=== PATIENT | female | born 1935 | race African-American/Black ===

== ENCOUNTER → 2019-02-24 | Day surgery (SDC) | payer MEDICARE, MEDICAID ==
[~2019-02-24] MED LIST: ACET-2178 PO; AMLO2.5T45 PO; APIX5TAB PO; ASCO500C6 PO; ATOR10TA PO; BISA10SU66 RC; BRIM10DR2 BOTHEYE; BROM3DRO BOTHEYE; CALC-816 PO; CHOL500010 PO; CITA20TA75 PO; COMBIGAN LEFTEYE; DICLOFENAC BOTHEYE; DOCU-150 PO; FERR-63 PO; FURO20TA4 PO; GABA-531 PO; HYDR-4001 PO; IMODIUM PO; INSU100V28; INVOKANA PO; LEVO25TA7 PO; LIDOCAINE HCL/EPINEPHRINE 1%-EPI 1:100,000 20 ML VIAL ONE; LOSA50TA20 PO; METF-414 PO; MOM PO; MULT-1146 PO; OCD MT; OMEP20TA2 PO; PIOG30TA10 PO; RISO02 PO; ROBITUSSIN DM PO; SIMBRINZA RIGHTEYE; SODIUM BICARBONATE 4% (2.4MEQ) 5ML VIAL IV ONE; SYSOS EACHEYE; TRAM50TA3 PO; TRAV2.5D LEFTEYE; [UNRECOGNIZED DRUG - REMARK] PO
== END | disposition home or self-care (01) ==
LOC: RAD 10:16
PROVIDERS: ATTEND Surgery
DX: C50.911 Malignant neoplasm of unspecified site of right female breast (principal)
CPT/HCPCS: 19083; 88305; A4648; J3490

== ENCOUNTER 2019-03-06 07:19 | Inpatient (IN) | payer MEDICARE, MEDICAID ==
[~2019-03-06] VITALS: Ht 170.2 cm; Wt 88.5 kg
[~2019-03-06 07:19] MED LIST changes: -COMBIGAN LEFTEYE; -DICLOFENAC BOTHEYE; -HYDR-4001 PO; -INSU100V28; -INVOKANA PO; -LIDOCAINE HCL/EPINEPHRINE 1%-EPI 1:100,000 20 ML VIAL ONE; -OCD MT; -SIMBRINZA RIGHTEYE; -SODIUM BICARBONATE 4% (2.4MEQ) 5ML VIAL IV ONE
[2019-03-06] MEDS ORDERED: SODIUM BICARBONATE 4% (2.4MEQ) 5ML VIAL IV ONE (08:15)
[2019-03-06] MEDS ORDERED: LIDOCAINE HCL 1% 20ML VIAL (Pyxis) INJ ONE (08:15)
[2019-03-06] MEDS ORDERED: GENTAMICIN SULF 40MG/ML 2ML VIAL ONE (08:32)
[2019-03-06] MEDS ORDERED: NORMAL SALINE 0.9% 10 ML SYR ONE (08:32)
[2019-03-06] MEDS ORDERED: SKIN ADHESIVE 0.7 GM EA TOP ONE (08:32)
[2019-03-06] MEDS ORDERED: BACITRACIN 50,000 UNITS/VIAL ONE (08:32)
[2019-03-06] MEDS ORDERED: METHYLENE BLUE 50 MG/10 ML AMP IV ONE (09:18)
[2019-03-06] MEDS ORDERED: PHENYLEPHRINE HCL 10 MG/ML 1ML (IV VIAL) IV ONE (10:10)
[2019-03-06] MEDS ORDERED: GLYCOPYRROLATE 0.2 MG/ML 2ML VIAL ONE (10:10)
[2019-03-06] MEDS ORDERED: SODIUM CHLORIDE 0.9% 10ML VIAL ONE (10:10)
[2019-03-06] MEDS ORDERED: PROPOFOL 200MG/20ML VIAL IV ONE (10:10)
[2019-03-06] MEDS ORDERED: NEOSTIGMINE METHYLSULFATE 1MG/ML 10 ML VIAL ONE (10:10)
[2019-03-06] MEDS ORDERED: FENTANYL CITRATE/PF 50MCG/ML 2ML VIAL ONE (10:10)
[2019-03-06] MEDS ORDERED: METOCLOPRAMIDE HCL 10MG/2ML VIAL ONE (10:10)
[2019-03-06] MEDS ORDERED: SUCCINYLCHOLINE CHLORIDE 200MG/10ML IV ONE (10:10)
[2019-03-06] MEDS ORDERED: ONDANSETRON HCL 4MG/2ML INJ ONE (10:10)
[2019-03-06] MEDS ORDERED: MIDAZOLAM HCL 2 MG/2 ML VIAL ONE (10:10)
[2019-03-06] MEDS ORDERED: LIDOCAINE HCL/PF 1% 10 MG/ML 5ML VIAL ONE (10:10)
[2019-03-06] MEDS ORDERED: ROCURONIUM BROMIDE 10MG/ML VIAL 5ML IV ONE (10:10)
[2019-03-06] MEDS ORDERED: CEFAZOLIN SODIUM 1000MG/VIAL ONE (10:10)
[2019-03-06] MEDS ORDERED: EPHEDRINE SULFATE 50MG/ML VIAL ONE (10:10)
[2019-03-06] MEDS ORDERED: SODIUM CHLORIDE 0.9% 1,000 ML IV ONE (12:44)
[2019-03-06] MEDS ORDERED: ONDANSETRON HCL 4MG/2ML INJ IV PRN ×2 (12:45)
[2019-03-06] MEDS ORDERED: HYDROCODONE/ACETAMINOPHEN 5/325MG TABLET PO PRN ×2 (12:45)
[2019-03-06] MEDS: HYDROMORPHONE HCL/PF 2MG/ML CPJ IV PRN ×2 (13:47→14:02)
[2019-03-06 15:39] VITALS: BP 181/74
[2019-03-06 16:00] VITALS: BP 181/74
[2019-03-06] MEDS ORDERED: CLONIDINE 0.1MG TABLET PO PRN (18:00)
[2019-03-06] MEDS: DEXT 5%/0.45% NACL KCL 20MEQ/L 1,000 ML IV SCH (18:24)
[2019-03-06] MEDS: MORPHINE SULFATE 4 MG/ML CPJ (NOT FOR IM USE) IV PRN (22:44)
[2019-03-07] VITALS: BP 146/71
[2019-03-07] MEDS: DEXT 5%/0.45% NACL KCL 20MEQ/L 1,000 ML IV SCH ×2 (02:30→14:00)
[2019-03-07] MEDS: MORPHINE SULFATE 4 MG/ML CPJ (NOT FOR IM USE) IV PRN (02:35)
[2019-03-07 04:00] VITALS: BP 146/72
[2019-03-07 08:00] VITALS: BP 149/61
[2019-03-07] MEDS ORDERED: HYDR-4001 PO (09:17)
[2019-03-07 11:07] VITALS: BP 149/61
== END 2019-03-07 14:34 | DRG 581 ==
LOC: OR 07:19 → 6EST 07:20
PROVIDERS: ADMIT Surgery; ATTEND Surgery
PROC: 0HBT0ZZ Excision of Right Breast, Open Approach (ICD-10-PCS; principal; 2019-03-06)
PROC: 07B50ZZ Excision of Right Axillary Lymphatic, Open Approach (ICD-10-PCS; 2019-03-06)
PROC: BH40ZZZ Ultrasonography of Right Breast (ICD-10-PCS; 2019-03-06)
DX: C50.911 Malignant neoplasm of unspecified site of right female breast (principal); E11.65 Type 2 diabetes mellitus with hyperglycemia; E11.621 Type 2 diabetes mellitus with foot ulcer; L97.509 Non-pressure chronic ulcer of other part of unspecified foot with unspecified severity
CPT/HCPCS: 19083; 78195; 82962; 88307; 88309; 88331; J0330; J0690; J1170; J1580; J2250; J2270; J2370; J2405; J2704; J2710; J2765; J3010; J3490; Q9968

== ENCOUNTER 2019-04-11 19:54 | Emergency (ER) | payer MEDICARE, MEDICAID ==
[~2019-04-11] VITALS: Ht 162.6 cm; Wt 86.0 kg
[~2019-04-11 19:54] MED LIST changes: +HYDR-4001 PO
[2019-04-11] MEDS ORDERED: ASPIRIN 81MG TABLET PO ONE (20:45)
[2019-04-11 21:20] LABS: BASOPHILS % 0.9 % (0.0-2.0); EOSINOPHILS % 2.3 % (0.0-5.0); HEMATOCRIT. 29.3 % (36.0-48.0); HEMOGLOBIN. 9.4 g/dL (12.0-16.0); LYMPHOCYTES % 21.1 % (20.0-50.0); MEAN CORPUSCULAR HEMOGLOBIN 26.1 pg (28.0-32.0); MEAN CORPUSCULAR VOLUME 81.5 fL (81.0-99.0); MONOCYTES % 7.9 % (2.0-8.0); NEUTROPHILS % 67.8 % (40.0-76.0); PLATELET 261 x1000/uL (130-400); RED BLOOD CELL COUNT 3.59 mill/uL (4.2-5.4)
[2019-04-11 21:26] LABS: CHLORIDE 104 mEq/L (98-107)
[2019-04-12 00:09] VITALS: BP 122/52
== END 2019-04-12 00:10 | disposition home or self-care (01) ==
LOC: ER 20:04
DX: R07.89 Other chest pain (principal); E78.5 Hyperlipidemia, unspecified; E11.9 Type 2 diabetes mellitus without complications; E78.00 Pure hypercholesterolemia, unspecified; I10 Essential (primary) hypertension; Z79.899 Other long term (current) drug therapy
CPT/HCPCS: 36415; 71045; 83880; 84484; 93005; 99284

== ENCOUNTER 2019-08-02 04:37 | Inpatient (IN) | payer MEDICARE, MEDICAID ==
[~2019-08-02] VITALS: Ht 165.1 cm; Wt 95.1 kg
[~2019-08-02 04:37] MED LIST changes: +CALC-38 PO; -CALC-816 PO; -LOSA50TA20 PO; +LOSA50TA41 PO
[2019-08-02 05:46] LABS: BASOPHILS % 1.2 % (0.0-2.0); EOSINOPHILS % 2.2 % (0.0-5.0); HEMATOCRIT. 30.9 % (36.0-48.0); HEMOGLOBIN. 10.1 g/dL (12.0-16.0); LYMPHOCYTES % 23.5 % (20.0-50.0); MEAN CORPUSCULAR HEMOGLOBIN 26.5 pg (28.0-32.0); MEAN CORPUSCULAR VOLUME 81.5 fL (81.0-99.0); MEAN PLATELET VOLUME 8.2 fl (7.4-10.4); MONOCYTES % 8.2 % (2.0-8.0); NEUTROPHILS % 64.9 % (40.0-76.0); PLATELET 272 x1000/uL (130-400)
[2019-08-02 05:58] LABS: CHLORIDE 104 mEq/L (98-107)
[2019-08-02] MEDS ORDERED: ASPIRIN 81MG TABLET PO ONE (07:00)
[2019-08-02 08:15] LABS: CLARITY URINE TURBID (CLEAR); COLOR URINE YELLOW (YELLOW); KETONES URINE NEGATIVE (NEGATIVE); LEUKOCYTE ESTERASE URINE 3+ (NEGATIVE); NITRITE URINE NEGATIVE (NEGATIVE); OCCULT BLOOD URINE TRACE (NEGATIVE); PH URINE 7.5 (4.5-8.0); PROTEIN URINE NEGATIVE (NEGATIVE); SPECIFIC GRAVITY URINE 1.006 (1.005-1.030)
[2019-08-02] MEDS ORDERED: LOSARTAN POTASSIUM 50 MG TABLET PO NR (16:00)
[2019-08-02] MEDS ORDERED: GABAPENTIN 300MG CAPSULE PO SCH (21:00)
[2019-08-02] MEDS: HYDROCODONE/ACETAMINOPHEN 5/325MG TABLET PO PRN (21:10)
[2019-08-02 22:00] VITALS: BP 133/57
[2019-08-03] MEDS: HYDROCODONE/ACETAMINOPHEN 5/325MG TABLET PO PRN ×2 (01:07→04:55)
[2019-08-03 04:00] VITALS: BP 141/55
[2019-08-03] MEDS: OMEPRAZOLE 20MG CAPSULE EXTENDED RELEASE PO SCH (05:50)
[2019-08-03] MEDS: LEVOTHYROXINE SODIUM 25MCG TABLET PO SCH (05:50)
[2019-08-03] MEDS ORDERED: GUAIFENESIN/CODEINE 200-20MG/10ML UDC PO PRN (06:45)
[2019-08-03] MEDS ORDERED: HYDROCODONE/ACETAMINOPHEN 10/325MG TABLET PO PRN (06:45)
[2019-08-03] MEDS ORDERED: DEXTROSE 50% WATER 50ML SYRINGE IV PRN (07:00)
[2019-08-03] MEDS: BLOOD SUGAR DIAGNOSTIC STRIP TEST SCH ×4 (07:00→21:55)
[2019-08-03] MEDS: INSULIN LISPRO 100 UNITS/ML SUBCUT SCH ×4 (07:15→21:00)
[2019-08-03 08:00] VITALS: BP 136/55
[2019-08-03] MEDS: AMLODIPINE 2.5MG TABLET PO SCH (09:06)
[2019-08-03] MEDS: METFORMIN HCL 500MG TABLET PO SCH ×2 (09:06→18:31)
[2019-08-03] MEDS: GABAPENTIN 300MG CAPSULE PO SCH ×2 (09:07→15:04)
[2019-08-03] MEDS: APIXABAN 5 MG TABLET PO SCH ×2 (09:07→18:31)
[2019-08-03] MEDS: CITALOPRAM HYDROBROMIDE 10MG TABLET PO SCH (09:07)
[2019-08-03] MEDS: DOCUSATE SODIUM 100MG CAPSULE PO SCH (09:07)
[2019-08-03 12:00] VITALS: BP 117/54
[2019-08-03] MEDS ORDERED: IPRATROPIUM/ALBUTEROL 0.5-3(2.5)MG/3ML NEB HHN PRN (14:00)
[2019-08-03] MEDS ORDERED: BENZONATATE 100MG CAPSULE PO PRN (14:00)
[2019-08-03 16:31] VITALS: BP_SYST 122; BP_SYST 147; BP_DIAS 60; BP_DIAS 68
[2019-08-03 19:10] LABS: BASOPHILS % 1.2 % (0.0-2.0); EOSINOPHILS % 1.8 % (0.0-5.0); HEMATOCRIT. 29.6 % (36.0-48.0); HEMOGLOBIN. 9.5 g/dL (12.0-16.0); LYMPHOCYTES % 23.5 % (20.0-50.0); MEAN CORPUSCULAR HEMOGLOBIN 26.5 pg (28.0-32.0); MEAN CORPUSCULAR VOLUME 82.4 fL (81.0-99.0); MEAN PLATELET VOLUME 8.7 fl (7.4-10.4); MONOCYTES % 8.6 % (2.0-8.0); NEUTROPHILS % 64.9 % (40.0-76.0); PLATELET 291 x1000/uL (130-400); RED BLOOD CELL COUNT 3.59 mill/uL (4.2-5.4)
[2019-08-03 19:12] LABS: CHLORIDE 101 mEq/L (98-107)
[2019-08-03 20:00] VITALS: BP 127/67
[2019-08-03] MEDS: IPRATROPIUM/ALBUTEROL 0.5-3(2.5)MG/3ML NEB HHN SCH (20:43)
[2019-08-03] MEDS: ATORVASTATIN CALCIUM 10MG TABLET PO SCH (21:00)
[2019-08-04] VITALS: BP 130/53
[2019-08-04] MEDS: IPRATROPIUM/ALBUTEROL 0.5-3(2.5)MG/3ML NEB HHN SCH ×4 (01:47→20:34)
[2019-08-04 04:00] VITALS: BP 144/58
[2019-08-04] MEDS: LEVOTHYROXINE SODIUM 25MCG TABLET PO SCH (05:52)
[2019-08-04] MEDS: OMEPRAZOLE 20MG CAPSULE EXTENDED RELEASE PO SCH (05:52)
[2019-08-04] MEDS: BLOOD SUGAR DIAGNOSTIC STRIP TEST SCH ×4 (06:47→21:55)
[2019-08-04] MEDS: INSULIN LISPRO 100 UNITS/ML SUBCUT SCH ×4 (06:56→22:08)
[2019-08-04 08:00] VITALS: BP 140/93
[2019-08-04] MEDS: METFORMIN HCL 500MG TABLET PO SCH ×2 (08:36→18:27)
[2019-08-04] MEDS: CITALOPRAM HYDROBROMIDE 10MG TABLET PO SCH (08:36)
[2019-08-04] MEDS: APIXABAN 5 MG TABLET PO SCH ×2 (08:36→18:27)
[2019-08-04] MEDS: DOCUSATE SODIUM 100MG CAPSULE PO SCH (08:36)
[2019-08-04] MEDS: AMLODIPINE 2.5MG TABLET PO SCH ×2 (08:47→18:27)
[2019-08-04] MEDS: GABAPENTIN 300MG CAPSULE PO SCH ×3 (09:00→18:27)
[2019-08-04 12:00] VITALS: BP 150/64
[2019-08-04 16:00] VITALS: BP 194/70
[2019-08-04] MEDS: NITROFURANTOIN MACROCRYSTAL 50MG CAPSULE PO SCH (18:00)
[2019-08-04] MEDS: ATORVASTATIN CALCIUM 10MG TABLET PO SCH (22:00)
[2019-08-04 22:43] VITALS: BP 144/69
[2019-08-05] VITALS: BP 134/79
[2019-08-05] MEDS: NITROFURANTOIN MACROCRYSTAL 50MG CAPSULE PO SCH ×3 (00:28→12:52)
[2019-08-05] MEDS: AMLODIPINE 2.5MG TABLET PO SCH ×2 (01:54→14:00)
[2019-08-05] MEDS: IPRATROPIUM/ALBUTEROL 0.5-3(2.5)MG/3ML NEB HHN SCH ×3 (02:00→12:00)
[2019-08-05 04:00] VITALS: BP 143/61
[2019-08-05] MEDS: BLOOD SUGAR DIAGNOSTIC STRIP TEST SCH ×4 (06:42→16:45)
[2019-08-05] MEDS: METFORMIN HCL 500MG TABLET PO SCH (06:43)
[2019-08-05] MEDS: OMEPRAZOLE 20MG CAPSULE EXTENDED RELEASE PO SCH (06:43)
[2019-08-05] MEDS: LEVOTHYROXINE SODIUM 25MCG TABLET PO SCH (06:43)
[2019-08-05] MEDS: INSULIN LISPRO 100 UNITS/ML SUBCUT SCH ×3 (06:50→17:15)
[2019-08-05 08:00] VITALS: BP 149/73
[2019-08-05] MEDS: DOCUSATE SODIUM 100MG CAPSULE PO SCH (09:00)
[2019-08-05] MEDS: GABAPENTIN 300MG CAPSULE PO SCH ×2 (10:06→12:51)
[2019-08-05] MEDS: CITALOPRAM HYDROBROMIDE 10MG TABLET PO SCH (10:07)
[2019-08-05] MEDS: APIXABAN 5 MG TABLET PO SCH (10:08)
[2019-08-05 12:00] VITALS: BP 150/73
[2019-08-05 15:19] VITALS: BP 150/73
[2019-08-05 16:00] VITALS: BP 137/80
[2019-08-06] MEDS ORDERED: FAMOTIDINE 20MG TABLET PO SCH (09:00)
== END 2019-08-05 17:57 | DRG 189 ==
LOC: ER 04:37 → EDBEDREQTM 06:53 → 5WST 07:50 → EDBEDREQ 08:05 → ENRESERV 20:55
PROVIDERS: ADMIT Specialist; ATTEND Specialist
DX: J96.00 Acute respiratory failure, unspecified whether with hypoxia or hypercapnia (principal); I48.92 Unspecified atrial flutter; N39.0 Urinary tract infection, site not specified; I48.0 Paroxysmal atrial fibrillation; M72.0 Palmar fascial fibromatosis [Dupuytren]; D64.9 Anemia, unspecified; M19.90 Unspecified osteoarthritis, unspecified site; I10 Essential (primary) hypertension; H40.9 Unspecified glaucoma; E78.5 Hyperlipidemia, unspecified; E03.9 Hypothyroidism, unspecified; F03.90 Unspecified dementia, unspecified severity, without behavioral disturbance, psychotic disturbance, mood disturbance, and anxiety; F09 Unspecified mental disorder due to known physiological condition; B96.20 Unspecified Escherichia coli [E. coli] as the cause of diseases classified elsewhere; D72.821 Monocytosis (symptomatic); F17.200 Nicotine dependence, unspecified, uncomplicated; E11.42 Type 2 diabetes mellitus with diabetic polyneuropathy; J20.8 Acute bronchitis due to other specified organisms; Z86.73 Personal history of transient ischemic attack (TIA), and cerebral infarction without residual deficits; Z85.3 Personal history of malignant neoplasm of breast; Z79.01 Long term (current) use of anticoagulants; Z79.899 Other long term (current) drug therapy; Z79.84 Long term (current) use of oral hypoglycemic drugs
CPT/HCPCS: 36415; 71045; 80048; 81003; 82962; 83880; 84484; 87077; 87186; 93005; 93306; 93970; 94640; 97162; 97530; 99285; J1815; J7620

== ENCOUNTER 2021-09-24 19:45 | Inpatient (IN) | payer MEDICARE, MEDICAID ==
[~2021-09-24] VITALS: Ht 167.6 cm; Wt 94.9 kg
[~2021-09-24 19:45] MED LIST changes: -ACET-2178 PO; -GABA-531 PO; +GABA-532 PO; +TOPUD PO; -TRAV2.5D LEFTEYE; +TRAV2.5D9 LEFTEYE
[2021-09-24] MEDS ORDERED: HALOPERIDOL LACTATE 5MG/ML VIAL IM STA (21:23)
[2021-09-24] MEDS ORDERED: DIPHENHYDRAMINE 50MG/ML VIAL IM STA (21:23)
[2021-09-24 23:23] LABS: CLARITY URINE CLOUDY (CLEAR); COLOR URINE YELLOW (YELLOW); KETONES URINE TRACE (NEGATIVE); LEUKOCYTE ESTERASE URINE 3+ (NEGATIVE); NITRITE URINE NEGATIVE (NEGATIVE); OCCULT BLOOD URINE TRACE (NEGATIVE); PH URINE 6.5 (4.5-8.0); PROTEIN URINE 3+ (NEGATIVE); SPECIFIC GRAVITY URINE 1.013 (1.005-1.030)
[2021-09-24 23:32] LABS: *BARBITURATES SCREEN URINE NEGATIVE (NEGATIVE)
[2021-09-24 23:33] LABS: *AMPHETAMINES SCREEN URINE NEGATIVE (NEGATIVE); *BENZODIAZEPINES SCREEN URINE NEGATIVE (NEGATIVE); *COCAINE SCREEN URINE NEGATIVE (NEGATIVE); METHADONE URINE SCREEN NEGATIVE (NEGATIVE); OPIATES URINE SCREEN NEGATIVE (NEGATIVE); PHENCYCLIDINE URINE SCREEN NEGATIVE (NEGATIVE)
[2021-09-24 23:34] LABS: CANNABINOID URINE SCREEN NEGATIVE (NEGATIVE)
[2021-09-24 23:56] LABS: HEMATOCRIT. 34.8 % (36.0-48.0); MEAN CORPUSCULAR HEMOGLOBIN 26.7 pg (28.0-32.0); MEAN CORPUSCULAR VOLUME 84.6 fL (81.0-99.0); RED BLOOD CELL COUNT 4.11 mill/uL (4.2-5.4); RED CELL DISTRIBUTION WIDTH 14.3 % (11.6-14.6)
[2021-09-25 00:03] LABS: CHLORIDE 105 mEq/L (98-107)
[2021-09-25 00:07] LABS: ETHANOL BLOOD < 10 mg/dL
[2021-09-25] MEDS ORDERED: CEFTRIAXONE 2 G PREMIX 50 ML IV SCH (01:00)
[2021-09-25] MEDS ORDERED: DIPHENHYDRAMINE 50MG/ML VIAL IV ONE (01:15)
[2021-09-25] MEDS ORDERED: LORAZEPAM 2MG/ML CPJ IV ONE (01:15)
[2021-09-25 04:43] LABS: MEAN PLATELET VOLUME 8.9 fl (7.4-10.4)
[2021-09-25 04:44] LABS: PLATELET 230 x1000/uL (130-400)
[2021-09-25 04:48] LABS: PLATELET ESTIMATE NORMAL
[2021-09-25] MEDS ORDERED: AMLODIPINE 5MG TABLET PO SCH (11:45)
[2021-09-25 12:00] VITALS: BP 135/82
[2021-09-25 13:00] VITALS: BP 127/67
[2021-09-25] MEDS ORDERED: DEXTROSE 50% WATER 50ML SYRINGE IV PRN (14:30)
[2021-09-25 16:00] VITALS: BP 135/82
[2021-09-25] MEDS ORDERED: BLOOD SUGAR DIAGNOSTIC STRIP TEST SCH (17:10)
[2021-09-25] MEDS ORDERED: ACETAMINOPHEN 325MG TABLET PO SCH (17:30)
[2021-09-25] MEDS ORDERED: BISACODYL 10MG SUPP PR PRN (17:30)
[2021-09-25] MEDS: INSULIN LISPRO 100 UNITS/ML SUBCUT SCH ×2 (17:40→20:46)
[2021-09-25] MEDS: NITROFURANTOIN 100MG M/M CAPSULE PO SCH ×2 (18:00→21:00)
[2021-09-25] MEDS: BLOOD SUGAR DIAGNOSTIC STRIP TEST SCH ×2 (18:07→20:31)
[2021-09-25] MEDS: APIXABAN 5 MG TABLET PO SCH (19:00)
[2021-09-25 20:00] VITALS: BP 105/50
[2021-09-25] MEDS: ATORVASTATIN CALCIUM 10MG TABLET PO SCH (21:00)
[2021-09-25] MEDS: METOPROLOL TARTRATE 50MG TABLET PO SCH (21:00)
[2021-09-25] MEDS: BRIMONIDINE 0.2% OPHTH DROPS 5ML BOTHEYE SCH (21:00)
[2021-09-25] MEDS: DORZOLAM/TIMOLOL 2.23/0.68% OPHTH DROPS 10ML BOTHEYE SCH (21:00)
[2021-09-25] MEDS ORDERED: MEDICATION NOT ON FORMULARY EA (Travoprost (Travatan Z) 1 DROP) LEFTEYE SCH (21:00)
[2021-09-25] MEDS: LATANOPROST 0.005% OPHTH DROPS 2.5ML LEFTEYE SCH (21:00)
[2021-09-25] MEDS: AMLODIPINE 5MG TABLET PO SCH (21:00)
[2021-09-25 23:56] VITALS: BP 117/53
[2021-09-26] VITALS: BP 117/53
[2021-09-26 04:00] VITALS: BP 138/61
[2021-09-26] MEDS: BLOOD SUGAR DIAGNOSTIC STRIP TEST SCH ×4 (05:29→20:53)
[2021-09-26] MEDS: INSULIN LISPRO 100 UNITS/ML SUBCUT SCH ×4 (05:38→23:13)
[2021-09-26 07:09] LABS: BASOPHILS % 0.4 % (0.0-2.0); EOSINOPHILS % 0.9 % (0.0-5.0); HEMATOCRIT. 33.5 % (36.0-48.0); HEMOGLOBIN. 10.4 g/dL (12.0-16.0); LYMPHOCYTES % 11.2 % (20.0-50.0); MEAN CORPUSCULAR HEMOGLOBIN 26.6 pg (28.0-32.0); MEAN CORPUSCULAR VOLUME 85.6 fL (81.0-99.0); MEAN PLATELET VOLUME 7.9 fl (7.4-10.4); MONOCYTES % 7.7 % (2.0-8.0); NEUTROPHILS % 79.8 % (40.0-76.0); PLATELET 289 x1000/uL (130-400); RED BLOOD CELL COUNT 3.92 mill/uL (4.2-5.4); RED CELL DISTRIBUTION WIDTH 14.5 % (11.6-14.6)
[2021-09-26] MEDS: LEVOTHYROXINE SODIUM 75MCG TABLET PO SCH (07:10)
[2021-09-26 07:20] LABS: CHLORIDE 104 mEq/L (98-107)
[2021-09-26 08:00] VITALS: BP 128/64
[2021-09-26] MEDS: BRIMONIDINE 0.2% OPHTH DROPS 5ML BOTHEYE SCH ×2 (09:00→17:46)
[2021-09-26] MEDS: ASPIRIN 81MG EC TABLET PO SCH (09:00)
[2021-09-26] MEDS: METOPROLOL TARTRATE 50MG TABLET PO SCH ×2 (09:00→21:00)
[2021-09-26] MEDS: DORZOLAM/TIMOLOL 2.23/0.68% OPHTH DROPS 10ML BOTHEYE SCH ×2 (09:00→21:00)
[2021-09-26] MEDS: ZINC SULFATE 220 MG ( 50 ) CAPSULE PO SCH (09:00)
[2021-09-26] MEDS: APIXABAN 5 MG TABLET PO SCH ×2 (09:00→17:00)
[2021-09-26] MEDS: NITROFURANTOIN 100MG M/M CAPSULE PO SCH ×2 (09:00→21:00)
[2021-09-26] MEDS: LOSARTAN POTASSIUM 50 MG TABLET PO SCH (09:00)
[2021-09-26] MEDS: AMLODIPINE 5MG TABLET PO SCH ×2 (09:00→21:00)
[2021-09-26] MEDS: CALCIUM CARBONATE/VITAMIN D3 500MG TABLET PO SCH ×2 (09:00→17:00)
[2021-09-26] MEDS ORDERED: MEDICATION NOT ON FORMULARY EA (Brimonidine Tartrate/Timolol (Combigan Eye Drops) 1 DROP BOTHEYE SCH (09:00)
[2021-09-26] MEDS: LINAGLIPTIN 5MG TABLET PO SCH (09:00)
[2021-09-26] MEDS ORDERED: CHOLECALCIFEROL 1000 UNIT PO SCH (09:00)
[2021-09-26] MEDS: DOCUSATE SODIUM 100MG CAPSULE PO SCH (09:00)
[2021-09-26] MEDS: CHOLECALCIFEROL (D3) 1000 UNIT TABLET PO SCH (09:00)
[2021-09-26] MEDS: INSULIN GLARGINE UD 100 UNITS/ML SYR SUBCUT SCH (10:04)
[2021-09-26] MEDS: DEXT 5%/0.45% NACL 1000ML 1,000 ML IV SCH ×2 (10:39→23:05)
[2021-09-26 12:00] VITALS: BP 121/55
[2021-09-26 16:00] VITALS: BP 142/59
[2021-09-26] MEDS ORDERED: LORAZEPAM 2MG/ML CPJ IV PRN (16:45)
[2021-09-26] MEDS: CITALOPRAM HYDROBROMIDE 10MG TABLET PO SCH (18:00)
[2021-09-26 20:00] VITALS: BP 135/82
[2021-09-26] MEDS: LATANOPROST 0.005% OPHTH DROPS 2.5ML LEFTEYE SCH (21:00)
[2021-09-26] MEDS: ATORVASTATIN CALCIUM 10MG TABLET PO SCH (21:00)
[2021-09-26] MEDS: RISPERIDONE 0.25MG TABLET PO SCH (21:00)
[2021-09-27] VITALS: BP 137/53
[2021-09-27] MEDS: BLOOD SUGAR DIAGNOSTIC STRIP TEST SCH ×4 (04:54→21:42)
[2021-09-27] MEDS: INSULIN LISPRO 100 UNITS/ML SUBCUT SCH ×4 (05:24→21:00)
[2021-09-27] MEDS: LEVOTHYROXINE SODIUM 75MCG TABLET PO SCH (05:26)
[2021-09-27] MEDS: CHOLECALCIFEROL (D3) 1000 UNIT TABLET PO SCH (09:00)
[2021-09-27] MEDS: DORZOLAM/TIMOLOL 2.23/0.68% OPHTH DROPS 10ML BOTHEYE SCH ×2 (09:00→21:00)
[2021-09-27] MEDS: CITALOPRAM HYDROBROMIDE 10MG TABLET PO SCH (09:00)
[2021-09-27] MEDS: LOSARTAN POTASSIUM 50 MG TABLET PO SCH (09:00)
[2021-09-27] MEDS: DOCUSATE SODIUM 100MG CAPSULE PO SCH (09:00)
[2021-09-27] MEDS: CALCIUM CARBONATE/VITAMIN D3 500MG TABLET PO SCH ×2 (09:00→16:54)
[2021-09-27] MEDS: ZINC SULFATE 220 MG ( 50 ) CAPSULE PO SCH (09:00)
[2021-09-27] MEDS: APIXABAN 5 MG TABLET PO SCH (09:00)
[2021-09-27] MEDS: LINAGLIPTIN 5MG TABLET PO SCH (09:00)
[2021-09-27] MEDS: BRIMONIDINE 0.2% OPHTH DROPS 5ML BOTHEYE SCH ×2 (09:00→16:54)
[2021-09-27] MEDS: AMLODIPINE 5MG TABLET PO SCH ×2 (09:00→21:00)
[2021-09-27] MEDS: ASPIRIN 81MG EC TABLET PO SCH (09:00)
[2021-09-27] MEDS: NITROFURANTOIN 100MG M/M CAPSULE PO SCH ×2 (09:00→21:00)
[2021-09-27] MEDS: METOPROLOL TARTRATE 50MG TABLET PO SCH ×2 (09:00→21:00)
[2021-09-27] MEDS: INSULIN GLARGINE UD 100 UNITS/ML SYR SUBCUT SCH (10:50)
[2021-09-27 12:00] VITALS: BP 111/51
[2021-09-27 16:00] VITALS: BP 119/49
[2021-09-27] MEDS: DEXT 5%/0.45% NACL 1000ML 1,000 ML IV SCH (16:53)
[2021-09-27 20:00] VITALS: BP 133/79
[2021-09-27] MEDS: ATORVASTATIN CALCIUM 10MG TABLET PO SCH (21:00)
[2021-09-27] MEDS: PANTOPRAZOLE SODIUM 40 MG/VIAL IV SCH (21:00)
[2021-09-27] MEDS: LATANOPROST 0.005% OPHTH DROPS 2.5ML LEFTEYE SCH (21:00)
[2021-09-27] MEDS: RISPERIDONE 0.25MG TABLET PO SCH (21:00)
[2021-09-28] VITALS: BP 100/70
[2021-09-28] MEDS: DEXT 5%/0.45% NACL 1000ML 1,000 ML IV SCH ×2 (01:45→11:44)
[2021-09-28 04:00] VITALS: BP 110/76
[2021-09-28] MEDS: BLOOD SUGAR DIAGNOSTIC STRIP TEST SCH ×4 (06:15→21:15)
[2021-09-28] MEDS: INSULIN LISPRO 100 UNITS/ML SUBCUT SCH ×4 (06:15→21:00)
[2021-09-28] MEDS: LEVOTHYROXINE SODIUM 75MCG TABLET PO SCH (06:15)
[2021-09-28] MEDS: AMLODIPINE 5MG TABLET PO SCH ×2 (09:00→21:00)
[2021-09-28] MEDS: NITROFURANTOIN 100MG M/M CAPSULE PO SCH ×2 (09:00→21:00)
[2021-09-28] MEDS: ZINC SULFATE 220 MG ( 50 ) CAPSULE PO SCH (09:00)
[2021-09-28] MEDS: METOPROLOL TARTRATE 50MG TABLET PO SCH ×2 (09:00→21:00)
[2021-09-28] MEDS: CITALOPRAM HYDROBROMIDE 10MG TABLET PO SCH (09:00)
[2021-09-28] MEDS: LOSARTAN POTASSIUM 50 MG TABLET PO SCH (09:00)
[2021-09-28] MEDS: CALCIUM CARBONATE/VITAMIN D3 500MG TABLET PO SCH ×2 (09:00→17:00)
[2021-09-28] MEDS: CHOLECALCIFEROL (D3) 1000 UNIT TABLET PO SCH (09:00)
[2021-09-28] MEDS: DOCUSATE SODIUM 100MG CAPSULE PO SCH (09:00)
[2021-09-28] MEDS: LINAGLIPTIN 5MG TABLET PO SCH (09:00)
[2021-09-28 10:00] VITALS: BP 126/46
[2021-09-28] MEDS: BRIMONIDINE 0.2% OPHTH DROPS 5ML BOTHEYE SCH ×2 (11:43→17:00)
[2021-09-28] MEDS: DORZOLAM/TIMOLOL 2.23/0.68% OPHTH DROPS 10ML BOTHEYE SCH ×2 (11:43→21:00)
[2021-09-28] MEDS: PANTOPRAZOLE SODIUM 40 MG/VIAL IV SCH ×2 (11:44→21:24)
[2021-09-28] MEDS: INSULIN GLARGINE UD 100 UNITS/ML SYR SUBCUT SCH (11:46)
[2021-09-28 11:54] LABS: BASOPHILS % 0.9 % (0.0-2.0); EOSINOPHILS % 1.4 % (0.0-5.0); HEMATOCRIT. 30.4 % (36.0-48.0); HEMOGLOBIN. 9.9 g/dL (12.0-16.0); LYMPHOCYTES % 12.1 % (20.0-50.0); MEAN CORPUSCULAR HEMOGLOBIN 26.6 pg (28.0-32.0); MEAN PLATELET VOLUME 7.7 fl (7.4-10.4); MONOCYTES % 7.8 % (2.0-8.0); NEUTROPHILS % 77.8 % (40.0-76.0); PLATELET 299 x1000/uL (130-400); RED BLOOD CELL COUNT 3.71 mill/uL (4.2-5.4); RED CELL DISTRIBUTION WIDTH 14.2 % (11.6-14.6)
[2021-09-28 12:00] VITALS: BP 136/81
[2021-09-28 12:01] LABS: CHLORIDE 104 mEq/L (98-107)
[2021-09-28] MEDS ORDERED: CEFAZOLIN 1000MG PREMIX 50 ML IV NR (14:00)
[2021-09-28] MEDS ORDERED: CEFAZOLIN SODIUM 1000MG/VIAL IM ONE (14:00)
[2021-09-28] MEDS: APIXABAN 5 MG TABLET PO SCH (17:00)
[2021-09-28] MEDS ORDERED: MIDAZOLAM HCL 5 MG/5 ML VIAL IV PRN (17:11)
[2021-09-28] MEDS ORDERED: MIDAZOLAM HCL 5 MG/5 ML VIAL ONE (17:19)
[2021-09-28] MEDS ORDERED: FENTANYL CITRATE/PF 50MCG/ML 2ML VIAL ONE (17:20)
[2021-09-28 20:00] VITALS: BP 132/45
[2021-09-28] MEDS: LATANOPROST 0.005% OPHTH DROPS 2.5ML LEFTEYE SCH (21:00)
[2021-09-28] MEDS: RISPERIDONE 0.25MG TABLET PO SCH (21:00)
[2021-09-28] MEDS: ATORVASTATIN CALCIUM 10MG TABLET PO SCH (21:00)
[2021-09-29 00:20] VITALS: BP 128/30
[2021-09-29 04:00] VITALS: BP 100/58
[2021-09-29] MEDS: DEXT 5%/0.45% NACL 1000ML 1,000 ML IV SCH ×2 (04:08→18:30)
[2021-09-29] MEDS: LEVOTHYROXINE SODIUM 75MCG TABLET PO SCH (06:09)
[2021-09-29] MEDS: BLOOD SUGAR DIAGNOSTIC STRIP TEST SCH ×4 (06:25→21:00)
[2021-09-29] MEDS: INSULIN LISPRO 100 UNITS/ML SUBCUT SCH ×4 (06:30→21:00)
[2021-09-29 08:00] VITALS: BP 117/61
[2021-09-29] MEDS: APIXABAN 5 MG TABLET PO SCH ×2 (09:00→17:00)
[2021-09-29] MEDS: ASPIRIN 81MG EC TABLET PO SCH (09:00)
[2021-09-29] MEDS: CITALOPRAM HYDROBROMIDE 10MG TABLET PO SCH (09:00)
[2021-09-29] MEDS: AMLODIPINE 5MG TABLET PO SCH ×2 (09:00→21:00)
[2021-09-29] MEDS: ZINC SULFATE 220 MG ( 50 ) CAPSULE PO SCH (09:00)
[2021-09-29] MEDS: CALCIUM CARBONATE/VITAMIN D3 500MG TABLET PO SCH ×2 (09:00→17:00)
[2021-09-29] MEDS: CHOLECALCIFEROL (D3) 1000 UNIT TABLET PO SCH (09:00)
[2021-09-29] MEDS: METOPROLOL TARTRATE 50MG TABLET PO SCH ×2 (09:00→21:00)
[2021-09-29] MEDS: NITROFURANTOIN 100MG M/M CAPSULE PO SCH ×2 (09:00→21:00)
[2021-09-29] MEDS: DOCUSATE SODIUM 100MG CAPSULE PO SCH (09:00)
[2021-09-29] MEDS: LOSARTAN POTASSIUM 50 MG TABLET PO SCH (09:00)
[2021-09-29] MEDS: LINAGLIPTIN 5MG TABLET PO SCH (09:00)
[2021-09-29] MEDS: INSULIN GLARGINE UD 100 UNITS/ML SYR SUBCUT SCH (10:12)
[2021-09-29] MEDS: BRIMONIDINE 0.2% OPHTH DROPS 5ML BOTHEYE SCH ×2 (10:13→17:00)
[2021-09-29] MEDS: PANTOPRAZOLE SODIUM 40 MG/VIAL IV SCH ×2 (10:13→21:29)
[2021-09-29] MEDS: DORZOLAM/TIMOLOL 2.23/0.68% OPHTH DROPS 10ML BOTHEYE SCH ×2 (10:13→21:00)
[2021-09-29] MEDS ORDERED: SKIN ADHESIVE 0.7 GM EA TOP ONE (10:19)
[2021-09-29] MEDS ORDERED: BUPIVACAINE HCL 0.5% (5MG/ML) 50ML ONE (10:19)
[2021-09-29] MEDS ORDERED: FENTANYL CITRATE/PF 50MCG/ML 2ML VIAL ONE (11:20)
[2021-09-29] MEDS ORDERED: ROCURONIUM BROMIDE 10MG/ML VIAL 5ML IV ONE (11:20)
[2021-09-29] MEDS ORDERED: METOCLOPRAMIDE HCL 10MG/2ML VIAL ONE (11:21)
[2021-09-29] MEDS ORDERED: SUCCINYLCHOLINE CHLORIDE 200MG/10ML IV ONE (11:21)
[2021-09-29] MEDS ORDERED: CEFAZOLIN SODIUM 1000MG/VIAL ONE (11:21)
[2021-09-29] MEDS ORDERED: GLYCOPYRROLATE 0.2 MG/ML 2ML VIAL ONE (11:21)
[2021-09-29] MEDS ORDERED: NEOSTIGMINE METHYLSULFATE 1MG/ML 10 ML VIAL ONE (11:21)
[2021-09-29] MEDS ORDERED: PHENYLEPHRINE HCL 10 MG/ML 1ML (IV VIAL) IV ONE (11:21)
[2021-09-29] MEDS ORDERED: SODIUM CHLORIDE 0.9% 10ML VIAL ONE (11:21)
[2021-09-29] MEDS ORDERED: ONDANSETRON HCL 4MG/2ML INJ ONE (11:21)
[2021-09-29] MEDS ORDERED: MIDAZOLAM HCL 2 MG/2 ML VIAL ONE (11:21)
[2021-09-29] MEDS ORDERED: PROPOFOL 200MG/20ML VIAL IV ONE (11:21)
[2021-09-29 16:00] VITALS: BP 114/58
[2021-09-29 20:00] VITALS: BP 152/64
[2021-09-29] MEDS: RISPERIDONE 0.25MG TABLET PO SCH (21:00)
[2021-09-29] MEDS: LATANOPROST 0.005% OPHTH DROPS 2.5ML LEFTEYE SCH (21:00)
[2021-09-29] MEDS: ATORVASTATIN CALCIUM 10MG TABLET PO SCH (21:00)
[2021-09-30] VITALS: BP_SYST 143; BP_SYST 180; BP_DIAS 59; BP_DIAS 85
[2021-09-30 04:00] VITALS: BP 152/64
[2021-09-30] MEDS: BLOOD SUGAR DIAGNOSTIC STRIP TEST SCH ×4 (06:05→21:41)
[2021-09-30] MEDS: INSULIN LISPRO 100 UNITS/ML SUBCUT SCH ×4 (06:05→21:57)
[2021-09-30] MEDS: LEVOTHYROXINE SODIUM 75MCG TABLET PO SCH (07:10)
[2021-09-30 08:00] VITALS: BP 145/66
[2021-09-30] MEDS: CALCIUM CARBONATE/VITAMIN D3 500MG TABLET PO SCH ×2 (09:00→17:24)
[2021-09-30] MEDS: LINAGLIPTIN 5MG TABLET PO SCH (09:00)
[2021-09-30] MEDS: LOSARTAN POTASSIUM 50 MG TABLET PO SCH (09:00)
[2021-09-30] MEDS: METOPROLOL TARTRATE 50MG TABLET PO SCH ×2 (09:00→21:40)
[2021-09-30] MEDS: ZINC SULFATE 220 MG ( 50 ) CAPSULE PO SCH (09:00)
[2021-09-30] MEDS: NITROFURANTOIN 100MG M/M CAPSULE PO SCH (09:00)
[2021-09-30] MEDS: ASPIRIN 81MG EC TABLET PO SCH (09:00)
[2021-09-30] MEDS: APIXABAN 5 MG TABLET PO SCH ×2 (09:00→17:24)
[2021-09-30] MEDS: AMLODIPINE 5MG TABLET PO SCH ×2 (09:00→21:40)
[2021-09-30] MEDS: CITALOPRAM HYDROBROMIDE 10MG TABLET PO SCH (09:00)
[2021-09-30] MEDS: DOCUSATE SODIUM 100MG CAPSULE PO SCH (09:00)
[2021-09-30] MEDS: CHOLECALCIFEROL (D3) 1000 UNIT TABLET PO SCH (09:00)
[2021-09-30 09:26] LABS: HEMATOCRIT. 30.3 % (36.0-48.0); HEMOGLOBIN. 9.3 g/dL (12.0-16.0); MEAN CORPUSCULAR HEMOGLOBIN 25.7 pg (28.0-32.0); MEAN CORPUSCULAR VOLUME 83.9 fL (81.0-99.0); MEAN PLATELET VOLUME 8.2 fl (7.4-10.4); PLATELET 245 x1000/uL (130-400); RED BLOOD CELL COUNT 3.61 mill/uL (4.2-5.4); RED CELL DISTRIBUTION WIDTH 14.5 % (11.6-14.6)
[2021-09-30] MEDS: PANTOPRAZOLE SODIUM 40 MG/VIAL IV SCH ×2 (09:30→21:40)
[2021-09-30] MEDS: BRIMONIDINE 0.2% OPHTH DROPS 5ML BOTHEYE SCH ×2 (09:31→17:26)
[2021-09-30] MEDS: DORZOLAM/TIMOLOL 2.23/0.68% OPHTH DROPS 10ML BOTHEYE SCH ×2 (09:31→21:41)
[2021-09-30 09:37] LABS: CHLORIDE 108 mEq/L (98-107)
[2021-09-30] MEDS: INSULIN GLARGINE UD 100 UNITS/ML SYR SUBCUT SCH (09:41)
[2021-09-30 10:55] LABS: PLATELET ESTIMATE NORMAL
[2021-09-30 12:00] VITALS: BP 154/69
[2021-09-30 16:00] VITALS: BP 144/64
[2021-09-30] MEDS: DEXT 5%/0.45% NACL 1000ML 1,000 ML IV SCH ×2 (17:28→21:47)
[2021-09-30 20:00] VITALS: BP 144/72
[2021-09-30] MEDS: RISPERIDONE 0.25MG TABLET PO SCH (21:40)
[2021-09-30] MEDS: ATORVASTATIN CALCIUM 10MG TABLET PO SCH (21:41)
[2021-09-30] MEDS: LATANOPROST 0.005% OPHTH DROPS 2.5ML LEFTEYE SCH (21:41)
[2021-10-01] VITALS: BP 140/54
[2021-10-01 04:00] VITALS: BP 146/69
[2021-10-01] MEDS: LEVOTHYROXINE SODIUM 75MCG TABLET PO SCH (06:14)
[2021-10-01] MEDS: BLOOD SUGAR DIAGNOSTIC STRIP TEST SCH ×4 (06:14→21:58)
[2021-10-01] MEDS: INSULIN LISPRO 100 UNITS/ML SUBCUT SCH ×4 (06:15→22:11)
[2021-10-01 07:46] LABS: HEMATOCRIT. 30.8 % (36.0-48.0); HEMOGLOBIN. 9.6 g/dL (12.0-16.0); MEAN CORPUSCULAR HEMOGLOBIN 25.7 pg (28.0-32.0); MEAN CORPUSCULAR VOLUME 82.5 fL (81.0-99.0); MEAN PLATELET VOLUME 8.7 fl (7.4-10.4); PLATELET 267 x1000/uL (130-400); RED BLOOD CELL COUNT 3.73 mill/uL (4.2-5.4); RED CELL DISTRIBUTION WIDTH 14.2 % (11.6-14.6)
[2021-10-01 07:52] LABS: CHLORIDE 103 mEq/L (98-107)
[2021-10-01 08:00] VITALS: BP 126/49
[2021-10-01] MEDS: DOCUSATE SODIUM 100MG CAPSULE PO SCH (09:00)
[2021-10-01] MEDS: PANTOPRAZOLE SODIUM 40 MG/VIAL IV SCH (09:00)
[2021-10-01] MEDS: DEXT 5%/0.45% NACL 1000ML 1,000 ML IV SCH (09:45)
[2021-10-01] MEDS: CHOLECALCIFEROL (D3) 1000 UNIT TABLET PO SCH (09:58)
[2021-10-01] MEDS: CITALOPRAM HYDROBROMIDE 10MG TABLET PO SCH (09:58)
[2021-10-01] MEDS: LINAGLIPTIN 5MG TABLET PO SCH (09:59)
[2021-10-01] MEDS: METOPROLOL TARTRATE 50MG TABLET PO SCH ×2 (09:59→22:08)
[2021-10-01] MEDS: CALCIUM CARBONATE/VITAMIN D3 500MG TABLET PO SCH ×2 (10:00→18:12)
[2021-10-01] MEDS: ASPIRIN 81MG EC TABLET PO SCH (10:00)
[2021-10-01] MEDS: ZINC SULFATE 220 MG ( 50 ) CAPSULE PO SCH (10:00)
[2021-10-01] MEDS: LOSARTAN POTASSIUM 50 MG TABLET PO SCH (10:00)
[2021-10-01] MEDS: APIXABAN 5 MG TABLET PO SCH ×2 (10:00→18:12)
[2021-10-01] MEDS: DORZOLAM/TIMOLOL 2.23/0.68% OPHTH DROPS 10ML BOTHEYE SCH ×2 (10:01→21:58)
[2021-10-01] MEDS: AMLODIPINE 5MG TABLET PO SCH ×2 (10:01→22:08)
[2021-10-01] MEDS: BRIMONIDINE 0.2% OPHTH DROPS 5ML BOTHEYE SCH ×2 (10:01→18:12)
[2021-10-01] MEDS: INSULIN GLARGINE UD 100 UNITS/ML SYR SUBCUT SCH (10:03)
[2021-10-01 12:00] VITALS: BP 112/48
[2021-10-01 13:25] LABS: PLATELET ESTIMATE NORMAL
[2021-10-01 16:00] VITALS: BP 117/50
[2021-10-01 20:00] VITALS: BP 122/55
[2021-10-01] MEDS: ATORVASTATIN CALCIUM 10MG TABLET PO SCH (21:57)
[2021-10-01] MEDS: RISPERIDONE 0.25MG TABLET PO SCH (21:57)
[2021-10-01] MEDS: PANTOPRAZOLE 40MG DR TABLET PO SCH (21:57)
[2021-10-01] MEDS: LATANOPROST 0.005% OPHTH DROPS 2.5ML LEFTEYE SCH (21:58)
[2021-10-02 04:00] VITALS: BP 115/61
[2021-10-02] MEDS: PANTOPRAZOLE 40MG DR TABLET PO SCH ×2 (06:41→22:27)
[2021-10-02] MEDS: LEVOTHYROXINE SODIUM 75MCG TABLET PO SCH (06:41)
[2021-10-02] MEDS: BLOOD SUGAR DIAGNOSTIC STRIP TEST SCH ×4 (06:41→21:00)
[2021-10-02] MEDS: INSULIN LISPRO 100 UNITS/ML SUBCUT SCH ×4 (06:45→21:00)
[2021-10-02] MEDS: DORZOLAM/TIMOLOL 2.23/0.68% OPHTH DROPS 10ML BOTHEYE SCH ×2 (10:52→22:38)
[2021-10-02] MEDS: LATANOPROST 0.005% OPHTH DROPS 2.5ML LEFTEYE SCH (10:53)
[2021-10-02] MEDS: BRIMONIDINE 0.2% OPHTH DROPS 5ML BOTHEYE SCH ×2 (10:53→17:56)
[2021-10-02] MEDS: CITALOPRAM HYDROBROMIDE 10MG TABLET PO SCH (10:54)
[2021-10-02] MEDS: APIXABAN 5 MG TABLET PO SCH ×2 (10:54→17:56)
[2021-10-02] MEDS: ASPIRIN 81MG EC TABLET PO SCH (10:54)
[2021-10-02] MEDS: LOSARTAN POTASSIUM 50 MG TABLET PO SCH (10:55)
[2021-10-02] MEDS: ZINC SULFATE 220 MG ( 50 ) CAPSULE PO SCH (10:55)
[2021-10-02] MEDS: LINAGLIPTIN 5MG TABLET PO SCH (10:55)
[2021-10-02] MEDS: METOPROLOL TARTRATE 50MG TABLET PO SCH ×2 (10:55→22:31)
[2021-10-02] MEDS: AMLODIPINE 5MG TABLET PO SCH ×2 (10:55→22:31)
[2021-10-02] MEDS: CALCIUM CARBONATE/VITAMIN D3 500MG TABLET PO SCH ×2 (10:55→17:56)
[2021-10-02] MEDS: DOCUSATE SODIUM 100MG CAPSULE PO SCH (10:56)
[2021-10-02] MEDS: CHOLECALCIFEROL (D3) 1000 UNIT TABLET PO SCH (10:57)
[2021-10-02] MEDS: INSULIN GLARGINE UD 100 UNITS/ML SYR SUBCUT SCH (11:00)
[2021-10-02 14:01] LABS: HEMATOCRIT. 30.1 % (36.0-48.0); HEMOGLOBIN. 9.7 g/dL (12.0-16.0); MEAN CORPUSCULAR HEMOGLOBIN 26.5 pg (28.0-32.0); MEAN CORPUSCULAR VOLUME 82.5 fL (81.0-99.0); PLATELET 287 x1000/uL (130-400); RED BLOOD CELL COUNT 3.65 mill/uL (4.2-5.4)
[2021-10-02 14:07] LABS: CHLORIDE 104 mEq/L (98-107)
[2021-10-02 15:35] LABS: PLATELET ESTIMATE NORMAL
[2021-10-02 20:00] VITALS: BP 121/67
[2021-10-02] MEDS: ATORVASTATIN CALCIUM 10MG TABLET PO SCH (22:27)
[2021-10-02] MEDS: RISPERIDONE 0.25MG TABLET PO SCH (22:27)
[2021-10-03] VITALS: BP 109/60
[2021-10-03 04:00] VITALS: BP 112/55
[2021-10-03] MEDS: BLOOD SUGAR DIAGNOSTIC STRIP TEST SCH ×5 (06:11→21:00)
[2021-10-03] MEDS: PANTOPRAZOLE 40MG DR TABLET PO SCH ×2 (06:11→22:12)
[2021-10-03] MEDS: LEVOTHYROXINE SODIUM 75MCG TABLET PO SCH (06:11)
[2021-10-03] MEDS: INSULIN LISPRO 100 UNITS/ML SUBCUT SCH ×4 (06:46→21:00)
[2021-10-03] MEDS: AMLODIPINE 5MG TABLET PO SCH ×2 (08:46→22:11)
[2021-10-03] MEDS: METOPROLOL TARTRATE 50MG TABLET PO SCH ×2 (08:46→22:12)
[2021-10-03] MEDS: DOCUSATE SODIUM 100MG CAPSULE PO SCH (08:52)
[2021-10-03] MEDS: ASPIRIN 81MG EC TABLET PO SCH (08:52)
[2021-10-03] MEDS: CALCIUM CARBONATE/VITAMIN D3 500MG TABLET PO SCH ×2 (08:53→17:02)
[2021-10-03] MEDS: APIXABAN 5 MG TABLET PO SCH ×2 (08:53→17:02)
[2021-10-03] MEDS: CITALOPRAM HYDROBROMIDE 10MG TABLET PO SCH (08:53)
[2021-10-03] MEDS: ZINC SULFATE 220 MG ( 50 ) CAPSULE PO SCH (08:53)
[2021-10-03] MEDS: LOSARTAN POTASSIUM 50 MG TABLET PO SCH (08:53)
[2021-10-03] MEDS: BRIMONIDINE 0.2% OPHTH DROPS 5ML BOTHEYE SCH ×2 (08:55→17:02)
[2021-10-03] MEDS: DORZOLAM/TIMOLOL 2.23/0.68% OPHTH DROPS 10ML BOTHEYE SCH ×2 (08:55→21:00)
[2021-10-03] MEDS: LINAGLIPTIN 5MG TABLET PO SCH (09:21)
[2021-10-03] MEDS: CHOLECALCIFEROL (D3) 1000 UNIT TABLET PO SCH (09:21)
[2021-10-03] MEDS: INSULIN GLARGINE UD 100 UNITS/ML SYR SUBCUT SCH (10:06)
[2021-10-03] MEDS ORDERED: FENTANYL CITRATE/PF 50MCG/ML 5ML VIAL ONE (12:31)
[2021-10-03] MEDS ORDERED: MIDAZOLAM HCL 5 MG/5 ML VIAL ONE (12:31)
[2021-10-03 16:00] VITALS: BP 130/49
[2021-10-03 20:00] VITALS: BP 118/83
[2021-10-03] MEDS: LATANOPROST 0.005% OPHTH DROPS 2.5ML LEFTEYE SCH (21:00)
[2021-10-03] MEDS: ATORVASTATIN CALCIUM 10MG TABLET PO SCH (22:12)
[2021-10-03] MEDS: RISPERIDONE 0.25MG TABLET PO SCH (22:12)
[2021-10-04 04:00] VITALS: BP 147/66
[2021-10-04] MEDS: BLOOD SUGAR DIAGNOSTIC STRIP TEST SCH ×3 (06:39→17:49)
[2021-10-04] MEDS: PANTOPRAZOLE 40MG DR TABLET PO SCH (06:40)
[2021-10-04] MEDS: LEVOTHYROXINE SODIUM 75MCG TABLET PO SCH (06:40)
[2021-10-04] MEDS: INSULIN LISPRO 100 UNITS/ML SUBCUT SCH ×3 (07:40→17:40)
[2021-10-04 08:00] VITALS: BP 152/75
[2021-10-04] MEDS: METOPROLOL TARTRATE 50MG TABLET PO SCH (09:37)
[2021-10-04] MEDS: APIXABAN 5 MG TABLET PO SCH ×2 (09:37→17:49)
[2021-10-04] MEDS: DOCUSATE SODIUM 100MG CAPSULE PO SCH (09:37)
[2021-10-04] MEDS: ASPIRIN 81MG EC TABLET PO SCH (09:37)
[2021-10-04] MEDS: LOSARTAN POTASSIUM 50 MG TABLET PO SCH (09:37)
[2021-10-04] MEDS: ZINC SULFATE 220 MG ( 50 ) CAPSULE PO SCH (09:37)
[2021-10-04] MEDS: AMLODIPINE 5MG TABLET PO SCH (09:37)
[2021-10-04] MEDS: CALCIUM CARBONATE/VITAMIN D3 500MG TABLET PO SCH ×2 (09:38→17:49)
[2021-10-04] MEDS: CHOLECALCIFEROL (D3) 1000 UNIT TABLET PO SCH (09:38)
[2021-10-04] MEDS: BRIMONIDINE 0.2% OPHTH DROPS 5ML BOTHEYE SCH ×2 (09:39→17:49)
[2021-10-04] MEDS: DORZOLAM/TIMOLOL 2.23/0.68% OPHTH DROPS 10ML BOTHEYE SCH (09:39)
[2021-10-04] MEDS: LINAGLIPTIN 5MG TABLET PO SCH (09:39)
[2021-10-04] MEDS: INSULIN GLARGINE UD 100 UNITS/ML SYR SUBCUT SCH (09:40)
[2021-10-04 12:00] VITALS: BP 146/89
[2021-10-04 16:00] VITALS: BP 132/52
[2021-10-04 18:29] VITALS: BP 124/49
[2021-10-04 20:00] VITALS: BP 124/49
== END 2021-10-04 22:03 | DRG 393 ==
LOC: ER 19:45 → 8WST 23:38 → ENRESERV 09-25 07:08
PROVIDERS: ADMIT Internal Medicine; ATTEND Internal Medicine
PROC: 0DJ63ZZ Inspection of Stomach, Percutaneous Approach (ICD-10-PCS; principal; 2021-09-28)
PROC: 0DH60UZ Insertion of Feeding Device into Stomach, Open Approach (ICD-10-PCS; 2021-09-29)
DX: K31.7 Polyp of stomach and duodenum (principal); G93.41 Metabolic encephalopathy; I13.0 Hypertensive heart and chronic kidney disease with heart failure and stage 1 through stage 4 chronic kidney disease, or unspecified chronic kidney disease; N39.0 Urinary tract infection, site not specified; F33.1 Major depressive disorder, recurrent, moderate; E44.0 Moderate protein-calorie malnutrition; R13.10 Dysphagia, unspecified; E03.9 Hypothyroidism, unspecified; E11.22 Type 2 diabetes mellitus with diabetic chronic kidney disease; E78.5 Hyperlipidemia, unspecified; F03.90 Unspecified dementia, unspecified severity, without behavioral disturbance, psychotic disturbance, mood disturbance, and anxiety; I48.0 Paroxysmal atrial fibrillation; I50.9 Heart failure, unspecified; N18.9 Chronic kidney disease, unspecified; M48.061 Spinal stenosis, lumbar region without neurogenic claudication; M48.02 Spinal stenosis, cervical region; E66.9 Obesity, unspecified; D64.9 Anemia, unspecified; G89.29 Other chronic pain; M54.50 Low back pain, unspecified; M19.90 Unspecified osteoarthritis, unspecified site; E11.65 Type 2 diabetes mellitus with hyperglycemia; Z53.20 Procedure and treatment not carried out because of patient's decision for unspecified reasons; Z20.822 Contact with and (suspected) exposure to COVID-19; Z74.01 Bed confinement status; Z85.3 Personal history of malignant neoplasm of breast; Z86.73 Personal history of transient ischemic attack (TIA), and cerebral infarction without residual deficits; Z90.11 Acquired absence of right breast and nipple; Z92.3 Personal history of irradiation; Z99.3 Dependence on wheelchair; Z79.891 Long term (current) use of opiate analgesic; Z79.2 Long term (current) use of antibiotics; Z79.899 Other long term (current) drug therapy; Z79.1 Long term (current) use of non-steroidal anti-inflammatories (NSAID); Z79.890 Hormone replacement therapy; Z68.33 Body mass index [BMI] 33.0-33.9, adult; Z79.01 Long term (current) use of anticoagulants; Z78.1 Physical restraint status
CPT/HCPCS: 36415; 80048; 80053; 80076; 80305; 80320; 81003; 82962; 83036; 84484; 85025; 87426; 93005; 93971; 99152; 99285; C1893; C9113; J0330; J0690; J0696; J1200; J1630; J1815; J2250; J2370; J2405; J2704; J2710; J2765; J3010; J3490; G0480; G0500

== ENCOUNTER 2022-06-23 18:21 | Inpatient (IN) | payer MEDICARE, MEDICAID ==
[~2022-06-23] VITALS: Ht 170.2 cm; Wt 87.5 kg
[~2022-06-23 18:21] MED LIST changes: -OMEP20TA2 PO; +OMEP20TA23 PO
[2022-06-23] MEDS ORDERED: ACETAMINOPHEN 325MG TABLET PO STA (18:35)
[2022-06-23] MEDS ORDERED: PIPERACILLIN/TAZ 3.375G PREMIX 50 ML IV ONE (18:45)
[2022-06-23] MEDS ORDERED: VANCOMYCIN 1G PREMIX 200 ML IV ONE (18:45)
[2022-06-23] MEDS ORDERED: SODIUM CHLORIDE 0.9% 1,000 ML IV ONE (18:45)
[2022-06-23 19:07] LABS: BASOPHILS % 0.7 % (0.0-2.0); EOSINOPHILS % 0.1 % (0.0-5.0); HEMATOCRIT. 29.7 % (36.0-48.0); HEMOGLOBIN. 9.4 g/dL (12.0-16.0); LYMPHOCYTES % 14.6 % (20.0-50.0); MEAN CORPUSCULAR HEMOGLOBIN 25.4 pg (28.0-32.0); MEAN CORPUSCULAR VOLUME 80.9 fL (81.0-99.0); MONOCYTES % 10.5 % (2.0-8.0); NEUTROPHILS % 74.1 % (40.0-76.0); PLATELET 165 x1000/uL (130-400); RED BLOOD CELL COUNT 3.68 mill/uL (4.2-5.4); RED CELL DISTRIBUTION WIDTH 15.4 % (11.6-14.6)
[2022-06-23] MEDS ORDERED: VANCOMYCIN 1GM PMX (XELLIA) 200 ML IV ONE (19:15)
[2022-06-23 19:16] LABS: BG BASE EXCESS -0.1 mmol/L (-2.0-2.0); BG CARBOXYHEMOGLOBIN 0.2 % (0.5-1.5); BG DEOXYHEMOGLOBIN 2.9 % (0.0-5.0); BG FRACTION INSPIRED OXYGEN 28; BG HCO3 ACT 22.6 mmol/L (22.0-26.0); BG METHEMOGLOBIN 0.3 % (0.0-1.5); BG OXYGEN SATURATION 97.1 % (92.0-98.5); BG OXYHEMOGLOBIN 96.6 % (94.0-97.0); BG PH 7.494 (7.350-7.450); BG PO2 88.3 mmHg (75.0-100.0); BG SAMPLE SITE RIGHT RADIAL; BG TOTAL HEMOGLOBIN 10.2 g/dL (12.0-18.0); BG VENT MODE NASAL CANNULA
[2022-06-23 19:18] LABS: CHLORIDE 107 mEq/L (98-107); INR 1.1; PROTHROMBIN TIME 12.2 sec (9.6-11.0)
[2022-06-23 19:32] LABS: CREATINE KINASE 208 IU/L (26-192); ETHANOL BLOOD < 10 mg/dL
[2022-06-23] MEDS ORDERED: ASPIRIN 300MG SUPP PR NR (20:45)
[2022-06-23 21:04] LABS: CLARITY URINE TURBID (CLEAR); COLOR URINE YELLOW (YELLOW); KETONES URINE TRACE (NEGATIVE); LEUKOCYTE ESTERASE URINE 3+ (NEGATIVE); NITRITE URINE NEGATIVE (NEGATIVE); OCCULT BLOOD URINE 1+ (NEGATIVE); PROTEIN URINE 2+ (NEGATIVE); SPECIFIC GRAVITY URINE 1.017 (1.005-1.030); UROBILINOGEN URINE 0.2 E.U./dL (0.2-1.0)
[2022-06-23 21:21] LABS: *AMPHETAMINES SCREEN URINE NEGATIVE (NEGATIVE); *BARBITURATES SCREEN URINE NEGATIVE (NEGATIVE); *BENZODIAZEPINES SCREEN URINE NEGATIVE (NEGATIVE); *COCAINE SCREEN URINE NEGATIVE (NEGATIVE); CANNABINOID URINE SCREEN NEGATIVE (NEGATIVE); METHADONE URINE SCREEN NEGATIVE (NEGATIVE); OPIATES URINE SCREEN NEGATIVE (NEGATIVE); PHENCYCLIDINE URINE SCREEN NEGATIVE (NEGATIVE)
[2022-06-24] VITALS (81 sets, daily range): BP systolic 82–144; BP diastolic 39–77
[2022-06-24] MEDS: SODIUM CHLORIDE 0.9% 1,000 ML IV SCH ×3 (02:00→20:40)
[2022-06-24] MEDS ORDERED: DEXTROSE 50% WATER 50ML SYRINGE IV PRN ×2 (04:00)
[2022-06-24] MEDS ORDERED: SODIUM CHLORIDE 0.9% 1,000 ML IV SCH (04:00)
[2022-06-24] MEDS ORDERED: NOREPINEPHRINE 8MG/250ML PMX 250 ML IV PRN (04:00)
[2022-06-24] MEDS ORDERED: INSULIN GLARGINE 100 UNITS/ML SUBCUT NR (04:00)
[2022-06-24] MEDS ORDERED: NOREPINEPHRINE 8 MG in DEXTROSE 5% WATER 250 ML IV PRN (04:15)
[2022-06-24] MEDS ORDERED: NOREPINEPHRINE 32 MG in DEXT 5% WATER 218 ML IV PRN (04:20)
[2022-06-24] MEDS: BLOOD SUGAR DIAGNOSTIC STRIP TEST SCH ×3 (05:14→17:01)
[2022-06-24 06:16] LABS: BASOPHILS % 0.4 % (0.0-2.0); EOSINOPHILS % 0.3 % (0.0-5.0); HEMATOCRIT. 30.4 % (36.0-48.0); HEMOGLOBIN. 9.6 g/dL (12.0-16.0); LYMPHOCYTES % 14.6 % (20.0-50.0); MEAN CORPUSCULAR HEMOGLOBIN 26.2 pg (28.0-32.0); MEAN CORPUSCULAR VOLUME 83.2 fL (81.0-99.0); MEAN PLATELET VOLUME 9.8 fl (7.4-10.4); MONOCYTES % 9.3 % (2.0-8.0); NEUTROPHILS % 75.4 % (40.0-76.0); PLATELET 136 x1000/uL (130-400); RED BLOOD CELL COUNT 3.65 mill/uL (4.2-5.4); RED CELL DISTRIBUTION WIDTH 15.6 % (11.6-14.6)
[2022-06-24] MEDS: INSULIN LISPRO 100 UNITS/ML SUBCUT SCH ×3 (07:14→17:06)
[2022-06-24] MEDS ORDERED: BLOOD SUGAR DIAGNOSTIC STRIP TEST SCH (07:30)
[2022-06-24] MEDS ORDERED: INSULIN LISPRO (MEDIUM DOSE) 100 UNITS/ML SUBCUT SCH (08:00)
[2022-06-24] MEDS ORDERED: INSULIN LISPRO 100 UNITS/ML SUBCUT SCH (08:00)
[2022-06-24] MEDS ORDERED: LIDOCAINE HCL 1% 10 MG/ML 10ML VIAL ONE (08:38)
[2022-06-24] MEDS: CEFTRIAXONE 1,000 MG in DEXTROSE 5% WATER 50 ML IV SCH (16:50)
[2022-06-24] MEDS: HEPARIN 5000 UNITS/ML VIAL SUBCUT SCH (20:49)
[2022-06-25] VITALS (83 sets, daily range): BP systolic 96–144; BP diastolic 44–102
[2022-06-25] MEDS: BLOOD SUGAR DIAGNOSTIC STRIP TEST SCH ×4 (00:11→17:08)
[2022-06-25] MEDS: INSULIN GLARGINE 100 UNITS/ML SUBCUT SCH ×2 (00:16→21:04)
[2022-06-25] MEDS: INSULIN LISPRO 100 UNITS/ML SUBCUT SCH ×4 (00:17→17:08)
[2022-06-25 04:34] LABS: HEMOGLOBIN. 8.8 g/dL (12.0-16.0); MEAN CORPUSCULAR HEMOGLOBIN 25.5 pg (28.0-32.0); MEAN CORPUSCULAR VOLUME 83.8 fL (81.0-99.0); MEAN PLATELET VOLUME 10.1 fl (7.4-10.4); PLATELET 119 x1000/uL (130-400); RED BLOOD CELL COUNT 3.46 mill/uL (4.2-5.4)
[2022-06-25] MEDS: SODIUM CHLORIDE 0.9% 1,000 ML IV SCH (05:49)
[2022-06-25] MEDS: HEPARIN 5000 UNITS/ML VIAL SUBCUT SCH ×2 (08:27→21:04)
[2022-06-25] MEDS: SODIUM CHLORIDE 0.45% 1,000 ML IV SCH (08:27)
[2022-06-25] MEDS: VANCOMYCIN 750MG PREMIX 150 ML IV SCH (08:28)
[2022-06-25] MEDS ORDERED: VANCOMYCIN 1GM PMX (XELLIA) 200 ML IV SCH (09:00)
[2022-06-25 09:49] LABS: PLATELET ESTIMATE DECREASED
[2022-06-25] MEDS: CEFTRIAXONE 1,000 MG in DEXTROSE 5% WATER 50 ML IV SCH (16:54)
[2022-06-26] VITALS (46 sets, daily range): BP systolic 104–146; BP diastolic 41–106
[2022-06-26] MEDS: SODIUM CHLORIDE 0.45% 1,000 ML IV SCH ×3 (02:12→18:44)
[2022-06-26] MEDS: BLOOD SUGAR DIAGNOSTIC STRIP TEST SCH ×4 (05:34→18:23)
[2022-06-26] MEDS: INSULIN LISPRO 100 UNITS/ML SUBCUT SCH ×4 (05:34→18:00)
[2022-06-26] MEDS: HEPARIN 5000 UNITS/ML VIAL SUBCUT SCH ×2 (10:19→20:10)
[2022-06-26] MEDS: CEFTRIAXONE 1,000 MG in DEXTROSE 5% WATER 50 ML IV SCH (16:14)
[2022-06-26] MEDS: VANCOMYCIN 750MG PREMIX 150 ML IV SCH (20:10)
[2022-06-26] MEDS: INSULIN GLARGINE 100 UNITS/ML SUBCUT SCH (22:15)
[2022-06-27] VITALS (24 sets, daily range): BP systolic 104–146; BP diastolic 50–88
[2022-06-27] MEDS: BLOOD SUGAR DIAGNOSTIC STRIP TEST SCH ×5 (00:12→23:05)
[2022-06-27] MEDS: INSULIN LISPRO 100 UNITS/ML SUBCUT SCH ×5 (06:00→23:05)
[2022-06-27 06:02] LABS: CHLORIDE 110 mEq/L (98-107)
[2022-06-27] MEDS: HEPARIN 5000 UNITS/ML VIAL SUBCUT SCH ×2 (08:02→21:19)
[2022-06-27] MEDS ORDERED: LEVOFLOXACIN 500MG PREMIX 100 ML IV SCH (11:00)
[2022-06-27] MEDS: INSULIN GLARGINE 100 UNITS/ML SUBCUT SCH (22:00)
[2022-06-28] VITALS (19 sets, daily range): BP systolic 109–147; BP diastolic 54–89
[2022-06-28] MEDS: INSULIN LISPRO 100 UNITS/ML SUBCUT SCH ×3 (05:15→18:00)
[2022-06-28] MEDS: BLOOD SUGAR DIAGNOSTIC STRIP TEST SCH ×3 (05:16→18:17)
[2022-06-28 05:26] LABS: BASOPHILS % 0.6 % (0.0-2.0); EOSINOPHILS % 2.5 % (0.0-5.0); HEMATOCRIT. 27.4 % (36.0-48.0); HEMOGLOBIN. 8.7 g/dL (12.0-16.0); LYMPHOCYTES % 9.9 % (20.0-50.0); MEAN CORPUSCULAR HEMOGLOBIN 25.9 pg (28.0-32.0); MEAN CORPUSCULAR VOLUME 81.3 fL (81.0-99.0); MONOCYTES % 7.3 % (2.0-8.0); NEUTROPHILS % 79.7 % (40.0-76.0); PLATELET 179 x1000/uL (130-400); RED BLOOD CELL COUNT 3.37 mill/uL (4.2-5.4); RED CELL DISTRIBUTION WIDTH 15.9 % (11.6-14.6)
[2022-06-28 05:45] LABS: CHLORIDE 111 mEq/L (98-107)
[2022-06-28 05:52] LABS: PHOSPHORUS 2.4 mg/dL (2.5-4.9)
[2022-06-28] MEDS ORDERED: SODIUM PHOS,M-BASIC-D-BASIC 15 MM in DEXT 5% WATER 245 ML IV NR (07:30)
[2022-06-28] MEDS: HEPARIN 5000 UNITS/ML VIAL SUBCUT SCH ×2 (09:00→21:00)
[2022-06-28] MEDS: LEVOFLOXACIN 250MG PREMIX 50 ML IV SCH (11:00)
[2022-06-29] VITALS: BP 111/56
[2022-06-29] MEDS: INSULIN GLARGINE 100 UNITS/ML SUBCUT SCH (00:03)
[2022-06-29] MEDS: BLOOD SUGAR DIAGNOSTIC STRIP TEST SCH ×4 (00:04→17:08)
[2022-06-29 04:00] VITALS: BP 115/36
[2022-06-29] MEDS: INSULIN LISPRO 100 UNITS/ML SUBCUT SCH ×4 (06:00→17:08)
[2022-06-29 07:22] LABS: BASOPHILS % 0.9 % (0.0-2.0); EOSINOPHILS % 3.2 % (0.0-5.0); HEMATOCRIT. 23.2 % (36.0-48.0); HEMOGLOBIN. 7.6 g/dL (12.0-16.0); MEAN CORPUSCULAR HEMOGLOBIN 26.4 pg (28.0-32.0); MEAN CORPUSCULAR VOLUME 80.5 fL (81.0-99.0); MEAN PLATELET VOLUME 8.8 fl (7.4-10.4); MONOCYTES % 10.5 % (2.0-8.0); NEUTROPHILS % 72.4 % (40.0-76.0); PLATELET 212 x1000/uL (130-400); RED BLOOD CELL COUNT 2.88 mill/uL (4.2-5.4); RED CELL DISTRIBUTION WIDTH 15.4 % (11.6-14.6)
[2022-06-29 07:42] LABS: CHLORIDE 110 mEq/L (98-107)
[2022-06-29 07:45] LABS: PHOSPHORUS 3.3 mg/dL (2.5-4.9)
[2022-06-29 08:00] VITALS: BP 124/60
[2022-06-29] MEDS: HEPARIN 5000 UNITS/ML VIAL SUBCUT SCH (09:20)
[2022-06-29] MEDS: LEVOFLOXACIN 250MG PREMIX 50 ML IV SCH (12:24)
[2022-06-29 16:00] VITALS: BP 124/59
[2022-06-29 17:40] VITALS: BP 124/59
== END 2022-06-29 17:50 | DRG 871 ==
LOC: ER 18:21 → MICUSO 21:33 → EDBEDREQ 21:37 → EDBEDREQTM 21:37 → 5EST 06-24 03:29 → MICUSO 06-24 04:30 → 6WST 06-28 20:20
PROVIDERS: ADMIT Internal Medicine; ATTEND Internal Medicine
PROC: 05HY33Z Insertion of Infusion Device into Upper Vein, Percutaneous Approach (ICD-10-PCS; principal; 2022-06-24)
PROC: B54PZZA Ultrasonography of Bilateral Upper Extremity Veins, Guidance (ICD-10-PCS; 2022-06-24)
DX: A41.9 Sepsis, unspecified organism (principal); G93.41 Metabolic encephalopathy; N17.0 Acute kidney failure with tubular necrosis; E87.0 Hyperosmolality and hypernatremia; I13.0 Hypertensive heart and chronic kidney disease with heart failure and stage 1 through stage 4 chronic kidney disease, or unspecified chronic kidney disease; N39.0 Urinary tract infection, site not specified; E87.2 Acidosis; J98.11 Atelectasis; D64.9 Anemia, unspecified; E11.22 Type 2 diabetes mellitus with diabetic chronic kidney disease; E66.9 Obesity, unspecified; F02.80 Dementia in other diseases classified elsewhere, unspecified severity, without behavioral disturbance, psychotic disturbance, mood disturbance, and anxiety; N18.9 Chronic kidney disease, unspecified; I48.91 Unspecified atrial fibrillation; E03.9 Hypothyroidism, unspecified; R62.7 Adult failure to thrive; F32.A Depression, unspecified; B96.89 Other specified bacterial agents as the cause of diseases classified elsewhere; E11.65 Type 2 diabetes mellitus with hyperglycemia; G30.9 Alzheimer's disease, unspecified; I50.9 Heart failure, unspecified; M48.061 Spinal stenosis, lumbar region without neurogenic claudication; Z96.649 Presence of unspecified artificial hip joint; E78.5 Hyperlipidemia, unspecified; H40.9 Unspecified glaucoma; Z20.822 Contact with and (suspected) exposure to COVID-19; M19.90 Unspecified osteoarthritis, unspecified site; R13.10 Dysphagia, unspecified; R79.89 Other specified abnormal findings of blood chemistry; Z68.30 Body mass index [BMI] 30.0-30.9, adult; Z99.3 Dependence on wheelchair; Z93.1 Gastrostomy status; Z86.73 Personal history of transient ischemic attack (TIA), and cerebral infarction without residual deficits; Z74.01 Bed confinement status; Z90.11 Acquired absence of right breast and nipple; Z79.899 Other long term (current) drug therapy; Z79.4 Long term (current) use of insulin
CPT/HCPCS: 36415; 36573; 36600; 71045; 80048; 80053; 80202; 80305; 80307; 80320; 80329; 81003; 82140; 82375; 82550; 82805; 82962; 83036; 83605; 83735; 83880; 84100; 84145; 84443; 84484; 85025; 86140; 87077; 87186; 87426; 92610; 93005; 99291; C1725; C9803; J0696; J1644; J1815; J1956; J2543; J3370; J3490; J7030; J7060; G0480